=== PATIENT | female | born 1945 | race Caucasian/White ===

== ENCOUNTER 2023-07-04 17:29 | Emergency (ER) | payer OTHER, MEDICAID ==
[~2023-07-04] VITALS: Ht 167.6 cm; Wt 113.6 kg
[2023-07-04 19:28] LABS: Basophils # (auto) 0 10 ^3/uL (0-0.2); Basophils % (auto) 0.3 % (0.0-2.0); Eosinophils # (auto) 0 10 ^3/uL (0-0.8); Eosinophils % (auto) 0.1 % (0.0-7.0); Hematocrit 43.8 % (36.0-46.0); Lymphocytes # (auto) 1.5 10 ^3/uL (0.4-5.4); Lymphocytes % (auto) 19.2 % (10.0-50.0); Mean Corpuscular Hemoglobin 30.5 pg (28.0-32.0); Mean Corpuscular Hgb Conc. 34.2 g/dL (32.0-36.0); Mean Corpuscular Volume 89.2 fL (80.0-100.0); Monocytes # (auto) 0.6 10 ^3/uL (0-1.3); Neutrophils # (auto) 5.6 10 ^3/uL (1.6-8.6); Neutrophils % (auto) 72.4 % (37.0-80.0); Nucleated Red Blood Cells % 0.1 %; Red Blood Cells 4.91 10^6/uL (4.0-5.20); Red Cell Distribution Width 13.5 % (11.8-14.3); White Blood Cell 7.7 10^3/uL (4.4-10.8)
[2023-07-04 19:58] LABS: Alanine Aminotransferase 16 U/L (7-40); Albumin 3.9 g/dL (3.2-4.8); Alkaline Phosphatase 100 U/L (46-116); Anion Gap 8.7 (5-15); Aspartate Aminotransferase 11 U/L (13-40); BUN/Creatinine Ratio 26.5 (10.0-20.0); Blood Urea Nitrogen 26 mg/dL (9-23); Calcium 8.6 mg/dL (8.7-10.4); Carbon Dioxide 26.3 mmol/L (20-30); Chloride 102 mmol/L (98-107); Glucose 154 mg/dL (74-106); Sodium 137 mmol/L (136-145)
[2023-07-04 19:59] LABS: Bilirubin, Total 0.6 mg/dL (0.2-1.0)
[2023-07-04 20:07] LABS: Potassium 2.9 mmol/L (3.5-5.1)
[2023-07-04] MEDS ORDERED: POTASSIUM CHL 20 Meq TABLET PO ONE (20:45)
[2023-07-04] MEDS ORDERED: ZOFR4T PO (21:16)
[2023-07-04 22:09] LABS: Urine Bacteria NONE SEEN /hpf (None Seen); Urine Blood Negative /uL (Negative); Urine Clarity HAZY (Clear); Urine Color Yellow (Yellow); Urine Hyaline Cast MOD /lpf (0 - 2); Urine Mucus FEW (None Seen); Urine Protein, UAD 1+ (Negative); Urine Specific Gravity 1.026 (1.001-1.035); Urine WBC 5 /hpf (0 - 5); Urine pH 5.5 (5.0-8.0)
[2023-07-04 22:10] LABS: COVID19 ANTIGEN SOFIA FIA NEGATIVE (NEGATIVE)
[2023-07-04 22:40] VITALS: BP 119/59; PULSE 96; RESP 20; TEMP 97.6; O2SAT 95
== END 2023-07-04 22:46 | disposition home or self-care (01) ==
LOC: EDBD 17:29 → ER 17:29
DX: B34.9 Viral infection, unspecified (principal); E87.6 Hypokalemia; E11.9 Type 2 diabetes mellitus without complications; Z20.822 Contact with and (suspected) exposure to COVID-19
CPT/HCPCS: 36415; 71045; 80053; 81001; 84484; 85025; 87426; 93005

== ENCOUNTER 2023-07-20 15:24 | Inpatient (IN) | payer OTHER, MEDICAID ==
[~2023-07-20] VITALS: Ht 170.2 cm; Wt 106.0 kg
[~2023-07-20 15:24] MED LIST: ZOFR4T PO
[2023-07-20 16:20] LABS: Basophils # (auto) 0 10 ^3/uL (0-0.2); Basophils % (auto) 0.2 % (0.0-2.0); Eosinophils # (auto) 0 10 ^3/uL (0-0.8); Eosinophils % (auto) 0.1 % (0.0-7.0); Hematocrit 43.5 % (36.0-46.0); Hemoglobin 14.5 g/dL (12.2-16.2); Lymphocytes # (auto) 2.7 10 ^3/uL (0.4-5.4); Lymphocytes % (auto) 25.7 % (10.0-50.0); Mean Corpuscular Hemoglobin 29.7 pg (28.0-32.0); Mean Corpuscular Hgb Conc. 33.3 g/dL (32.0-36.0); Mean Corpuscular Volume 89.3 fL (80.0-100.0); Monocytes # (auto) 0.6 10 ^3/uL (0-1.3); Monocytes % (auto) 5.5 % (0.0-12.0); Neutrophils # (auto) 7.2 10 ^3/uL (1.6-8.6); Neutrophils % (auto) 68.5 % (37.0-80.0); Red Blood Cells 4.87 10^6/uL (4.0-5.20); Red Cell Distribution Width 13.9 % (11.8-14.3); White Blood Cell 10.5 10^3/uL (4.4-10.8)
[2023-07-20 16:44] LABS: Alanine Aminotransferase 15 U/L (7-40); Albumin 3.1 g/dL (3.2-4.8); Alkaline Phosphatase 148 U/L (46-116); Anion Gap 8 (5-15); Aspartate Aminotransferase 11 U/L (13-40); BUN/Creatinine Ratio 38.3 (10.0-20.0); Bilirubin, Total 0.4 mg/dL (0.2-1.0); Blood Urea Nitrogen 41 mg/dL (9-23); Calcium 8.3 mg/dL (8.7-10.4); Carbon Dioxide 25 mmol/L (20-30); Chloride 102 mmol/L (98-107); Glucose 143 mg/dL (74-106); Potassium 3.9 mmol/L (3.5-5.1); Sodium 135 mmol/L (136-145); Total Protein 5.2 g/dL (5.7-8.2)
[2023-07-20] MEDS ORDERED: HYDROcodone-ACET 10/325MG TAB PO ONE (20:15)
[2023-07-20] MEDS ORDERED: LACTATED RINGER'S 1,000 ML IV ONE (20:15)
[2023-07-20] MEDS ORDERED: KETOROLAC TROMETH 30 MG/ML 1ML VIAL IV ONE (20:15)
[2023-07-20] MEDS ORDERED: ALBUTEROL SULF 2.5 MG/0.5ML(0.5%) NEB SOLN NEB ONE (20:15)
[2023-07-20] MEDS ORDERED: ONDANSETRON ODT 4 MG TAB PO ONE (20:15)
[2023-07-20] MEDS ORDERED: DexAMETHasone SOD PHOS 10MG/1ML VIAL INJ IV ONE (20:15)
[2023-07-20 22:08] LABS: COVID19 ANTIGEN SOFIA FIA NEGATIVE (NEGATIVE); Rapid Influenza A Negative (Negative); Rapid Influenza B Negative (Negative)
[2023-07-21] VITALS (7 sets, daily range): BP systolic 102–124; BP diastolic 42–87; PULSE 69–91; RESP 20–22; TEMP 36.8; O2SAT 93–96
[2023-07-21] MEDS ORDERED: LACTATED RINGER'S 1,000 ML IV ONE (01:00)
[2023-07-21] MEDS ORDERED: ONDANSETRON HCL 4 MG/2 ML VIAL IV PRN (01:15)
[2023-07-21] MEDS: ACETAMINOPHEN 325 MG TAB PO PRN ×3 (09:35→21:11)
[2023-07-21 09:57] LABS: Urine Bacteria NONE SEEN /hpf (None Seen); Urine Blood Negative /uL (Negative); Urine Clarity HAZY (Clear); Urine Color Yellow (Yellow); Urine Hyaline Cast MANY /lpf (0 - 2); Urine Mucus FEW (None Seen); Urine Protein, UAD TRACE (Negative); Urine Specific Gravity 1.023 (1.001-1.035); Urine WBC 5 /hpf (0 - 5); Urine pH 5.5 (5.0-8.0)
[2023-07-21] MEDS ORDERED: PANTOPRAZOLE 40 MG TAB PO SCH (10:00)
[2023-07-21] MEDS: ENOXAPARIN SOD 30 MG/0.3 ML SYRINGE SC SCH (10:12)
[2023-07-21] MEDS: SODIUM CHLORIDE 0.9% 1,000 ML IV SCH ×2 (12:09→22:00)
[2023-07-21] MEDS ORDERED: SIMV20TA20 PO (15:00)
[2023-07-21] MEDS ORDERED: ATORVASTATIN 20 MG TAB PO SCH (22:00)
[2023-07-22] VITALS (7 sets, daily range): BP systolic 92–124; BP diastolic 36–101; PULSE 90–103; RESP 20–22; TEMP 36.4; O2SAT 93–96
[2023-07-22] MEDS: ACETAMINOPHEN 325 MG TAB PO PRN (03:58)
[2023-07-22 07:18] LABS: Alanine Aminotransferase 110 U/L (7-40); Alkaline Phosphatase 136 U/L (46-116); Anion Gap 12 (5-15); Calcium 7.7 mg/dL (8.5-10.1); Carbon Dioxide 21 mmol/L (20-30); Chloride 100 mmol/L (98-107); Glucose 211 mg/dL (74-106); Potassium 3.8 mmol/L (3.5-5.1); Sodium 133 mmol/L (136-145)
[2023-07-22 07:19] LABS: Albumin 3.1 g/dL (3.2-4.8); Aspartate Aminotransferase 188 U/L (13-40); Bilirubin, Total 0.6 mg/dL (0.2-1.0); Total Protein 5.6 g/dL (5.7-8.2)
[2023-07-22 07:21] LABS: Blood Urea Nitrogen 54 mg/dL (9-23)
[2023-07-22 08:13] LABS: Basophils # (auto) 0 10 ^3/uL (0-0.2); Basophils % (auto) 0.1 % (0.0-2.0); Eosinophils # (auto) 0 10 ^3/uL (0-0.8); Eosinophils % (auto) 0.1 % (0.0-7.0); Lymphocytes # (auto) 0.9 10 ^3/uL (0.4-5.4); Mean Corpuscular Hemoglobin 29.6 pg (28.0-32.0); Mean Corpuscular Hgb Conc. 33.2 g/dL (32.0-36.0); Monocytes # (auto) 0.2 10 ^3/uL (0-1.3)
[2023-07-22 08:19] LABS: Hematocrit 41.9 % (36.0-46.0); Hemoglobin 13.9 g/dL (12.2-16.2); Lymphocytes % (auto) 7.7 % (10.0-50.0); Monocytes % (auto) 1.7 % (0.0-12.0); Neutrophils % (auto) 90.4 % (37.0-80.0); Red Cell Distribution Width 14.1 % (11.8-14.3); White Blood Cell 12.1 10^3/uL (4.4-10.8)
[2023-07-22] MEDS: ENOXAPARIN SOD 30 MG/0.3 ML SYRINGE SC SCH (09:34)
[2023-07-22] MEDS: SODIUM CHLORIDE 0.9% 1,000 ML IV SCH (09:35)
[2023-07-22] MEDS ORDERED: SODIUM CHLORIDE 0.9% 1,000 ML IV ONE (14:15)
[2023-07-22] MEDS ORDERED: HYDROmorphone HCL 2 MG/ML VL/or syr IV PRN (16:15)
[2023-07-22] MEDS: cefTRIAXone 1GM/50ML D5W 50 ML IV SCH (16:40)
[2023-07-22] MEDS ORDERED: MAGNESIUM SULFATE 1GM/100ML 100 ML IV ONE (17:45)
[2023-07-22] MEDS: D5W/SOD CHLO 0.9% 1,000 ML IV SCH ×2 (17:49→22:15)
[2023-07-22] MEDS: metroNIDAZOLE 500MG/100ML 100 ML IV SCH (21:14)
[2023-07-23] VITALS (54 sets, daily range): BP systolic 79–116; BP diastolic 29–75; PULSE 57–114; RESP 19–26; TEMP 97–99.3; O2SAT 10–100
[2023-07-23] MEDS: metroNIDAZOLE 500MG/100ML 100 ML IV SCH ×3 (05:43→22:16)
[2023-07-23] MEDS: D5W/SOD CHLO 0.9% 1,000 ML IV SCH ×2 (06:15→14:15)
[2023-07-23 06:24] LABS: Hematocrit 46.3 % (36.0-46.0); Hemoglobin 14.5 g/dL (12.2-16.2); Mean Corpuscular Hemoglobin 29.5 pg (28.0-32.0); Mean Corpuscular Hgb Conc. 31.3 g/dL (32.0-36.0); Mean Corpuscular Volume 94.3 fL (80.0-100.0); Red Blood Cells 4.91 10^6/uL (4.0-5.20); Red Cell Distribution Width 15.3 % (11.8-14.3); White Blood Cell 22.6 10^3/uL (4.4-10.8)
[2023-07-23 06:31] LABS: INR 1.32 (0.9-1.15); Partial Thromboplastin Time 44.1 SEC (24.5-34.5); Prothrombin Time 13.6 sec (9.3-11.8)
[2023-07-23 06:43] LABS: Alanine Aminotransferase 179 U/L (7-40); Alkaline Phosphatase 167 U/L (46-116); Aspartate Aminotransferase 218 U/L (13-40); Bilirubin, Total 0.3 mg/dL (0.2-1.0); Blood Urea Nitrogen 49 mg/dL (9-23); Chloride 106 mmol/L (98-107); Glucose 63 mg/dL (74-106); Potassium 4.9 mmol/L (3.5-5.1); Sodium 137 mmol/L (136-145); Total Protein 5.4 g/dL (5.7-8.2)
[2023-07-23 06:45] LABS: Basophils % (manual) 0 (0.0-2.0); Blast Cells 0; Eosinophils % (manual) 0 (0-7); Metamyelocytes % 0; Myelocytes % 0; Promyelocytes % 0; Reactive Lymphocytes 0
[2023-07-23 07:13] LABS: Anion Gap 21.00001 (5-15)
[2023-07-23 07:20] LABS: Carbon Dioxide < 10 mmol/L (20-30)
[2023-07-23] MEDS ORDERED: DEXTROSE (50%) 50ML SYRG IV PRN (08:00)
[2023-07-23] MEDS ORDERED: NOREPINEPHRINE 8 MG/250ML KIT 250 ML IV ONE (08:00)
[2023-07-23] MEDS ORDERED: DEXTROSE 50% SYRINGE 50 ML IV ONE (08:09)
[2023-07-23] MEDS ORDERED: SODIUM CHLORIDE 0.9% 2,000 ML IV ONE (08:15)
[2023-07-23] MEDS ORDERED: ETOMIDATE (2MG/ML) 20ML VIAL IV ONE (08:21)
[2023-07-23] MEDS ORDERED: ROCURONIUM 10MG/ML 10ML VIAL IV ONE (08:21)
[2023-07-23] MEDS ORDERED: MIDAZOLAM DRIP 50 mg/50mL 50 ML IV ONE (08:22)
[2023-07-23] MEDS ORDERED: PHENYLEPHRINE IV 250 ML IV ONE (08:34)
[2023-07-23 09:15] LABS: Base Excess -19.7 mmol/L (-2.0-2.0)
[2023-07-23 09:50] LABS: Base Excess -17.3 mmol/L (-2.0-2.0)
[2023-07-23] MEDS ORDERED: SODIUM BICARBONATE 8.4 % INJ 50ML VIAL IV ONE (09:56)
[2023-07-23] MEDS ORDERED: ENOXAPARIN SOD 40 MG/0.4 ML SYRINGE SC SCH (10:00)
[2023-07-23] MEDS ORDERED: PANTOPRAZOLE 40 MG/10 ML VIAL INJ IV SCH (10:00)
[2023-07-23 10:11] LABS: Band Neutrophils % (manual) 5; Lymphocytes % (manual) 6 (10.0-50.0); Monocytes % (manual) 2 (0-12)
[2023-07-23 10:13] LABS: Platelet Estimate Adequate; Toxic Granulation Slight; Toxic Vacuolation Present
[2023-07-23] MEDS ORDERED: MIDAZOLAM HCL 2MG/2ML 2ml VIAL (1mg/ml) ONE ×2 (10:30→13:04)
[2023-07-23] MEDS ORDERED: DEXTROSE (50%) 50ML SYRG IV ONE (10:48)
[2023-07-23] MEDS ORDERED: SODIUM BICARBONATE 8.4% INJ 50ML SYRINGE IV ONE (10:48)
[2023-07-23] MEDS: NOREPINEPHRINE 8 MG/250ML KIT 250 ML IV SCH ×3 (11:09→23:22)
[2023-07-23 11:20] LABS: Lactic Acid w/Reflex 8.2 mmol/L (0.4-2.0)
[2023-07-23 11:27] LABS: Phosphorus 7.5 mg/dL (2.4-5.1)
[2023-07-23] MEDS ORDERED: MIDAZOLAM DRIP 50 mg/50mL 50 ML IV SCH (11:30)
[2023-07-23] MEDS: PHENYLEPHRINE IV 250 ML IV SCH ×3 (11:30→22:39)
[2023-07-23] MEDS ORDERED: fentaNYL Drip 2500mCg/250mlNS 250 ML IV SCH (11:30)
[2023-07-23] MEDS ORDERED: CALCIUM CHL(10%) 100MG/ML 10ML VIAL IV ONE (11:56)
[2023-07-23] MEDS: InsuLIN REG 1unit/0.01ml Soln (100units/ml) SC SCH ×2 (12:00→17:50)
[2023-07-23 12:03] LABS: Hematocrit 42.3 % (36.0-46.0); Hemoglobin 13.5 g/dL (12.2-16.2); Mean Corpuscular Hemoglobin 29.3 pg (28.0-32.0); Mean Corpuscular Hgb Conc. 31.9 g/dL (32.0-36.0); Mean Corpuscular Volume 91.9 fL (80.0-100.0); Red Blood Cells 4.61 10^6/uL (4.0-5.20); Red Cell Distribution Width 14.7 % (11.8-14.3); White Blood Cell 21.3 10^3/uL (4.4-10.8)
[2023-07-23 12:08] LABS: Band Neutrophils % (manual) 0; Basophils % (manual) 0 (0.0-2.0); Blast Cells 0; Eosinophils % (manual) 0 (0-7); Metamyelocytes % 0; Monocytes % (manual) 0 (0-12); Myelocytes % 0; Promyelocytes % 0; Reactive Lymphocytes 0
[2023-07-23 12:16] LABS: Alanine Aminotransferase 817 U/L (7-40); Albumin 2.8 g/dL (3.2-4.8); Alkaline Phosphatase 216 U/L (46-116); Anion Gap 19 (5-15); BUN/Creatinine Ratio 25.5 (10.0-20.0); Bilirubin, Total 0.3 mg/dL (0.2-1.0); Calcium 7.3 mg/dL (8.7-10.4); Carbon Dioxide 15 mmol/L (20-30); Chloride 104 mmol/L (98-107); Glucose 120 mg/dL (74-106); Magnesium 2.4 mg/dL (1.6-2.6); Sodium 138 mmol/L (136-145); Total Protein 4.9 g/dL (5.7-8.2)
[2023-07-23 12:17] LABS: INR 1.43 (0.9-1.15); Partial Thromboplastin Time 53.8 SEC (24.5-34.5); Prothrombin Time 14.7 sec (9.3-11.8)
[2023-07-23 12:28] LABS: Aspartate Aminotransferase 1873 U/L (13-40); Blood Urea Nitrogen 70 mg/dL (9-23)
[2023-07-23 12:30] LABS: Potassium 5.9 mmol/L (3.5-5.1)
[2023-07-23] MEDS ORDERED: fentaNYL CITRATE 100 MCG/2 ML VL ONE (12:36)
[2023-07-23 13:37] LABS: Lymphocytes % (manual) 6 (10.0-50.0)
[2023-07-23 13:38] LABS: Toxic Granulation Slight; Toxic Vacuolation Present
[2023-07-23 13:39] LABS: Platelet Estimate Adequate
[2023-07-23] MEDS: NYSTATIN TOPICAL POWDER 15GM TOP SCH ×2 (13:56→22:00)
[2023-07-23] MEDS: cefTRIAXone 1GM/50ML D5W 50 ML IV SCH (14:26)
[2023-07-23 14:38] LABS: Base Excess -15.8 mmol/L (-2.0-2.0)
[2023-07-23] MEDS: ACCU-CHEK COMFORT CURVE STRIP VI SCH ×2 (14:49→17:49)
[2023-07-23] MEDS ORDERED: ALBUTEROL SULF 2.5 MG/0.5ML(0.5%) NEB SOLN NEB ONE (15:45)
[2023-07-23] MEDS ORDERED: CALCIUM GLUC 1,000mg/50ml-NS 50 ML IV ONE (15:45)
[2023-07-23] MEDS: SODIUM BICARBONATE 50ML VIAL 50 ML in D5W/SOD CHL 0.45% 1,000 ML IV SCH ×2 (16:31→19:09)
[2023-07-24] VITALS (37 sets, daily range): BP systolic 34–116; BP diastolic 16–53; PULSE 36–104; RESP 20; TEMP 96.8–98.2; O2SAT 4–100
[2023-07-24] MEDS: ACCU-CHEK COMFORT CURVE STRIP VI SCH ×2 (00:04→06:00)
[2023-07-24] MEDS: SODIUM BICARBONATE 50ML VIAL 50 ML in D5W/SOD CHL 0.45% 1,000 ML IV SCH (01:11)
[2023-07-24] MEDS ORDERED: SODIUM BICARBONATE 8.4 % INJ 50ML VIAL IV ONE ×3 (02:25→03:47)
[2023-07-24] MEDS: PHENYLEPHRINE IV 250 ML IV SCH (02:34)
[2023-07-24 02:38] LABS: Base Excess -27.2 mmol/L (-2.0-2.0)
[2023-07-24 03:08] LABS: Hemoglobin 10.4 g/dL (12.2-16.2); Mean Corpuscular Hemoglobin 29.7 pg (28.0-32.0); Mean Corpuscular Hgb Conc. 30.5 g/dL (32.0-36.0)
[2023-07-24 03:10] LABS: Mean Corpuscular Volume 97.4 fL (80.0-100.0); Red Blood Cells 3.49 10^6/uL (4.0-5.20); White Blood Cell 20.8 10^3/uL (4.4-10.8)
[2023-07-24] MEDS ORDERED: DOPamine 1600MCG/ML D5W 250 ML IV SCH (03:45)
[2023-07-24] MEDS ORDERED: VASOPRESSIN 20 UNITS in SODIUM CHL 0.9% 99 ML IV SCH (03:45)
[2023-07-24 03:49] LABS: Albumin 1.8 g/dL (3.2-4.8); Alkaline Phosphatase 275 U/L (46-116); Anion Gap 23.00001 (5-15); BUN/Creatinine Ratio 21.8 (10.0-20.0); Bilirubin, Total 0.4 mg/dL (0.2-1.0); Blood Urea Nitrogen 69 mg/dL (9-23); Calcium 6.3 mg/dL (8.7-10.4); Chloride 107 mmol/L (98-107); Glucose 118 mg/dL (74-106); Sodium 140 mmol/L (136-145); Total Protein 3.2 g/dL (5.7-8.2)
[2023-07-24] MEDS: SODIUM BICARBONATE 50ML VIAL 150 ML in D5W 5% 1,000 ML IV SCH ×2 (04:00→06:01)
[2023-07-24 04:03] LABS: Carbon Dioxide < 10 mmol/L (20-30); Potassium 8.6 mmol/L (3.5-5.1)
[2023-07-24 04:06] LABS: Alanine Aminotransferase 1800 U/L (7-40)
[2023-07-24] MEDS ORDERED: VASOPRESSIN 20 UNIT/ML ONE (04:10)
[2023-07-24] MEDS ORDERED: EPINEPHrine HCL 250 ML IV ONE (04:22)
[2023-07-24] MEDS ORDERED: SODIUM ZIRCONIUM CYCL 10 GM PAK PO ONE (04:30)
[2023-07-24] MEDS ORDERED: DEXTROSE (50%) 50ML SYRG IV ONE (04:30)
[2023-07-24] MEDS ORDERED: CALCIUM GLUC 1,000mg/50ml-NS 50 ML IV ONE (04:30)
[2023-07-24] MEDS ORDERED: InsuLIN REG 1unit/0.01ml Soln (100units/ml) IV ONE (04:30)
[2023-07-24] MEDS ORDERED: EPINEPHrine HCL 250 ML IV SCH (04:30)
[2023-07-24] MEDS ORDERED: SODIUM BICARBONATE 8.4% INJ 50ML SYRINGE IV ONE (04:30)
[2023-07-24 04:43] LABS: Basophils % (manual) 0 (0.0-2.0); Blast Cells 0; Eosinophils % (manual) 0 (0-7); Promyelocytes % 0; Reactive Lymphocytes 0
[2023-07-24] MEDS: metroNIDAZOLE 500MG/100ML 100 ML IV SCH (06:00)
[2023-07-24] MEDS: InsuLIN REG 1unit/0.01ml Soln (100units/ml) SC SCH ×2 (06:00)
[2023-07-24 06:04] LABS: Band Neutrophils % (manual) 24; Lymphocytes % (manual) 12 (10.0-50.0); Metamyelocytes % 8; Monocytes % (manual) 10 (0-12); Myelocytes % 8; Platelet Estimate Adequate
[2023-07-24 08:14] LABS: Aspartate Aminotransferase > 6000 U/L (13-40)
[2023-07-24] MEDS ORDERED: ENOXAPARIN SOD 30 MG/0.3 ML SYRINGE SC SCH (10:00)
== END 2023-07-24 10:51 | DRG 853 ==
LOC: ER 15:24 → EDBD 15:24 → OVERFLOW 07-21 01:15 → WEST WING 07-21 12:53 → ICU WEST 07-23 08:49
PROVIDERS: ADMIT Nurse Practitioner; ATTEND Nurse Practitioner Acute Care
PROC: 0D9670Z Drainage of Stomach with Drainage Device, Via Natural or Artificial Opening (ICD-10-PCS; 2023-07-22)
PROC: 0BH17EZ Insertion of Endotracheal Airway into Trachea, Via Natural or Artificial Opening (ICD-10-PCS; 2023-07-23)
PROC: 0DB80ZZ Excision of Small Intestine, Open Approach (ICD-10-PCS; 2023-07-23)
PROC: 0WQF0ZZ Repair Abdominal Wall, Open Approach (ICD-10-PCS; 2023-07-23)
PROC: 02H633Z Insertion of Infusion Device into Right Atrium, Percutaneous Approach (ICD-10-PCS; 2023-07-23)
PROC: B548ZZA Ultrasonography of Superior Vena Cava, Guidance (ICD-10-PCS; 2023-07-23)
PROC: 5A1935Z Respiratory Ventilation, Less than 24 Consecutive Hours (ICD-10-PCS; principal; 2023-07-23 10:15)
DX: A41.9 Sepsis, unspecified organism (principal); G93.41 Metabolic encephalopathy; J96.00 Acute respiratory failure, unspecified whether with hypoxia or hypercapnia; R65.21 Severe sepsis with septic shock; K65.1 Peritoneal abscess; E44.0 Moderate protein-calorie malnutrition; N17.9 Acute kidney failure, unspecified; E87.1 Hypo-osmolality and hyponatremia; E87.20 Acidosis, unspecified; K43.6 Other and unspecified ventral hernia with obstruction, without gangrene; K55.9 Vascular disorder of intestine, unspecified; E86.0 Dehydration; Z20.822 Contact with and (suspected) exposure to COVID-19; J06.9 Acute upper respiratory infection, unspecified; E83.51 Hypocalcemia; E88.09 Other disorders of plasma-protein metabolism, not elsewhere classified; R62.7 Adult failure to thrive; E87.5 Hyperkalemia; E78.5 Hyperlipidemia, unspecified; E11.22 Type 2 diabetes mellitus with diabetic chronic kidney disease; E11.649 Type 2 diabetes mellitus with hypoglycemia without coma; E66.01 Morbid (severe) obesity due to excess calories; I12.9 Hypertensive chronic kidney disease with stage 1 through stage 4 chronic kidney disease, or unspecified chronic kidney disease; K43.2 Incisional hernia without obstruction or gangrene; N18.9 Chronic kidney disease, unspecified; Z82.49 Family history of ischemic heart disease and other diseases of the circulatory system; Z68.36 Body mass index [BMI] 36.0-36.9, adult; Z90.710 Acquired absence of both cervix and uterus
CPT/HCPCS: 36415; 36600; 71045; 74018; 74176; 80053; 81001; 82306; 82550; 82805; 82962; 83036; 83605; 83615; 83735; 83880; 83970; 84100; 84132; 84484; 85007; 85025; 85027; 85379; 85610; 85730; 86850; 86900; 86901; 86920; 87040; 87070; 87075; 87077; 87081; 87186; 87205; 87426; 87804; 93306; 94002; 94003; 94640; 96374; 96375; C9113; G0378; J0171; J0696; J1100; J1885; J2250; J2405; J3490; Q0162